=== PATIENT | female | born 1990 | race Caucasian/White ===

== ENCOUNTER 2017-03-09 13:06 | Emergency (ER) | payer OTHER ==
[~2017-03-09] VITALS: Ht 157.5 cm; Wt 79.7 kg
[~2017-03-09 13:06] MED LIST: CETIRIZINE HCL10 M2 PO; Effexor PO; LITE COAT ASPI325 M1 PO; LO LOESTRIN FE1 EACH PO; MAXALT5 MG PO; Motrin PO; NEXIUM20 MG PO; NOHOMEMEDS; NORCO 5/3251 TABLET PO; Normodyne,Trandate PO; Percocet 5/325,Endoc PO; TYLENOL EXTRA500 MG PO; ZOMIG2.5 M1 NS; ZOMIG2.5 MG PO; ZYRTEC10 M3 PO
[2017-03-09 13:53] LABS: MCH 29.2 PG (29.0-34.0); MCHC 33.1 G/DL (30.0-36.0); MCV 88.2 FL (83-99); MEAN PLAT.VOLUME 9.7 uM^3 (9.5-12.4); PLATELET COUNT 345 K/uL (156-360); RBC DIS.WIDTH-CV 12.4 % (11.8-14.6); RBC DIS.WIDTH-SD 40.3 % (39-53); RED BLOOD COUNT 4.76 M/uL (3.80-5.20); WHITE BLOOD COUNT 10.7 K/uL (4.1-10.2)
[2017-03-09 14:03] LABS: CHLORIDE 105 mEq/L (99-109); POTASSIUM 4.7 mEq/L (3.7-5.4); SODIUM 139 mEq/L (136-147)
[2017-03-09 14:05] LABS: GLUCOSE 86 mg/dL (70-99)
[2017-03-09 14:07] LABS: ANION GAP 10 MEQ/L (2-14); TOTAL BILIRUBIN 0.5 mg/dL (0.0-1.0)
[2017-03-09 14:09] LABS: ALKALINE PHOSPHATASE 78 IU/L (3-129); GFR ESTIMATE (CALCULATED) > 59 mL/min/
[2017-03-09 14:10] LABS: UREA NITROGEN (BUN) 12 mg/dL (9-23)
[2017-03-09 14:20] LABS: QUANTITATIVE HCG < 4.0 MIU/ML
[2017-03-09 15:19] LABS: ADD MIUA? NO; BILIRUBIN NEGATIVE; BLOOD NEGATIVE; COLOR YELLOW ((YELLOW)); GLUCOSE (STRIP) NEGATIVE; KETONES NEGATIVE; LEUKOCYTES NEGATIVE; NITRITE NEGATIVE; PROTEIN (STRIP) NEGATIVE; SPECIFIC GRAVITY 1.023 (1.000-1.030); UCUL ADDED? NO; UROBILINOGEN 0.2 MG/DL (0.2-1.0)
[2017-03-09 15:59] LABS: LIPASE 21 U/L (1.0-51.0)
[2017-03-09] MEDS ORDERED: BENTYL10 MG PO (16:47)
[2017-03-09 17:36] VITALS: BP 136/81
== END 2017-03-09 17:38 | disposition home or self-care (01) ==
LOC: EME 13:06
DX: R10.9 Unspecified abdominal pain (principal); M54.5 Low back pain; R11.0 Nausea
CPT/HCPCS: 74176; 80053; 81003; 83690; 84702; 85027; 99281; 99285; J1885; J2405

== ENCOUNTER 2017-03-21 08:49 | Emergency (ER) | payer OTHER ==
[~2017-03-21] VITALS: Ht 160 cm; Wt 72.3 kg
[~2017-03-21 08:49] MED LIST changes: +BENTYL10 MG PO
[2017-03-21 11:15] VITALS: BP 130/82
== END 2017-03-21 11:35 | disposition home or self-care (01) ==
LOC: EME 08:49
DX: G43.909 Migraine, unspecified, not intractable, without status migrainosus (principal); F32.9 Major depressive disorder, single episode, unspecified; K21.9 Gastro-esophageal reflux disease without esophagitis; Z86.14 Personal history of Methicillin resistant Staphylococcus aureus infection
CPT/HCPCS: 99281; 99284; J1885